=== PATIENT | female | born 2000 | race Caucasian/White ===

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

== ENCOUNTER 2019-03-24 20:36 | Emergency (ER) | payer OTHER ==
--- OUTSIDE RECORDS SUMMARY | 2019-03-24 20:45 | XMS REPORT | Continuity of Care Document ---
:2000 External Reference #:[id number] Author Name Rito Davis N.P. Address [address] [facility] [address] [place] [address] Care Team Providers Name Role Phone Ariadna Wiggins MD Care Team Information Log Processor Operator Unavailable Payers Date Identification Numbers Payment Provider Subscriber Policy Number: [id number] [facility] [place]: [id number] [address] [place] [address] Policy Number: [id number] Medicaid/[facility] [place] [facility] [id number] [address] [place] [address] Advance Directives Description No Information Available Problems Description No Active Problems Family History Date Family Member(s) Observation Comments Father Healthy Father 54 Children None Siblings 5 Social History Type Date Description Comments Sex Unknown Marital Status Legal Status: Never ETOH Use Denies alcohol use Tobacco Use Start: Unknown Patient has never smoked Allergies, Adverse Reactions, Alerts Description No Known Drug Allergies Medications Active Medications SIG Qnty Indications Ordering Date Provider Citalopram 1 by mouth every 30tabs F41.9 Ariadna Wiggins, 03/20/2019 Hydrobromide Night M.D. 10mg Tablets Lactaid One Tab By Mouth 30tabs E73.9 Ariadna Wiggins, 03/04/2019 3000Unit Per Dairy Meal. M.D. Tablets Elimite apply neck to 60gm B86 Ariadna Wiggins, 10/08/2018 5% Cream toe over M.D. entirety of skin prior to shower. Benadryl Itch Apply To Rash 28.300gm B86 Ariadna Wiggins, 10/08/2018 Stopping Once Daily prn M.D. 1-0.1% Cream Itch X 2 Weeks Mirena (52 MG) by fire engine operator Z30.49 Ariadna Wiggins, 03/23/2017 M.DSubhash 20mcg/24HR IUD History Medications No Active Medications Unknown 03/23/2017 - 03/23/2017 Wellbutrin XL 1 by mouth 30tabs F34.1 Ariadna Wiggins, 03/23/2017 - 150mg every day M.D. 02/18/2018 Tablets ER 24HR M54.5 Mobic 1 by mouth every 30tabs M41.34 Ariadna Wiggins, 05/14/2015 - 15mg morning M.D. 03/20/2017 Tablets M54.6 M54.5 Ibuprofen 1 by mouth three 90tabs 737.34 Ariadna Wiggins, 02/20/2015 - 800mg times a day as M.D. 05/14/2015 Tablets needed 724.1 724.2 No Active Medications Ariadna Wiggins, 04/01/2013 - M.D. 04/01/2013 Malathion Apply To Dry 59ml 132.0 Ariadna Wiggins, 04/01/2013 - 0.5% Lotion Hair 12H Then M.D. 04/02/2013 Rinse Medications Administered in Office Medication SIG Qnty Indications Ordering Provider Date Intradermal Mantoux Ariadna Wiggins M.D. 03/13/2018 Injection Immunizations CPT Code Status Date Vaccine Lot # [id number] Given 08/12/2011 Td 7 Years And Older 66061 Given 12/07/2001 Prevnar 45930 Given 12/12/2000 Hep B To Age 18 51246 Given 12/12/2000 Varicella Vaccine 77517 Given 12/12/2000 MMR 67543 Given 12/12/2000 DTaP ND [id number] ML 0.50 66894 Given 12/12/2000 Prevnar 35867 Given 09/12/2000 IPV 83500 Given 06/06/2000 Hemophilus Influenza B Vaccine 68580 Given 06/06/2000 DTaP ND [id number] ML 0.50 20385 Given 03/13/2000 Hep B To Age 18 99111 Given 03/13/2000 DTaP [facility] [id number] ML 0.50 77902 Given 03/13/2000 Hemophilus Influenza B Vaccine 44561 Given 01/13/2000 Hep B To Age 17 61307 Given 01/13/2000 IPV 92684 Given 01/13/2000 IPV 91498 Given 01/13/2000 DTaP [facility] [id number] ML 0.50 43608 Given 01/13/2000 Hemophilus Influenza B Vaccine Vital Signs Date Vital Result Comment 03/20/2019 10:25am BP Systolic 110 mmHg BP Diastolic 64 mmHg Height 68 inches 5'8" Weight 159.00 lb BMI (Body Mass Index) 24.2 kg/m2 Heart Rate 84 /min Respiratory Rate 16 /min 03/04/2019 11:33am BP Systolic 110 mmHg BP Diastolic 62 mmHg Height 68 inches 5'8" Weight 160.00 lb BMI (Body Mass Index) 24.3 kg/m2 Heart Rate 73 /min Respiratory Rate 16 /min 11/02/2018 2:01pm BP Systolic 130 mmHg BP Diastolic 78 mmHg Height 68 inches 5'8" Weight 174.00 lb BMI (Body Mass Index) 26.5 kg/m2 10/24/2018 4:02pm BP Systolic 110 mmHg BP Diastolic 62 mmHg Height 68 inches 5'8" Weight 177.00 lb BMI (Body Mass Index) 26.9 kg/m2 Heart Rate 80 /min Respiratory Rate 16 /min 10/08/2018 4:02pm BP Systolic 118 mmHg BP Diastolic 64 mmHg Height 68 inches 5'8" Weight 175.00 lb BMI (Body Mass Index) 26.6 kg/m2 Heart Rate 84 /min Respiratory Rate 16 /min 03/15/2018 1:03pm BP Systolic 120 mmHg BP Diastolic 80 mmHg Height 65.5 inches 5'5.50" Weight 192.00 lb BMI (Body Mass Index) 31.5 kg/m2 Heart Rate 122 /min Respiratory Rate 18 /min 03/13/2018 12:47pm BP Systolic 126 mmHg BP Diastolic 70 mmHg Height 65.5 inches 5'5.50" Weight 192.00 lb BMI (Body Mass Index) 31.5 kg/m2 Heart Rate 80 /min Respiratory Rate 18 /min 03/23/2017 4:04pm BP Systolic 124 mmHg BP Diastolic 78 mmHg Height 65.5 inches 5'5.50" Weight 179.00 lb BMI (Body Mass Index) 29.3 kg/m2 Heart Rate 104 /min Respiratory Rate 18 /min 05/14/2015 9:27am BP Systolic 132 mmHg BP Diastolic 80 mmHg Height 65.5 inches 5'5.50" Weight 147.00 lb BMI (Body Mass Index) 24.1 kg/m2 Heart Rate 84 /min Respiratory Rate 16 /min 02/20/2015 8:40am BP Systolic 131 mmHg BP Diastolic 69 mmHg Height 65.5 inches 5'5.50" Weight 144.00 lb BMI (Body Mass Index) 23.6 kg/m2 Heart Rate 73 /min Respiratory Rate 16 /min 01/26/2015 3:16pm BP Systolic 131 mmHg BP Diastolic 68 mmHg Height 65.5 inches 5'5.50" Weight 146.00 lb BMI (Body Mass Index) 23.9 kg/m2 Heart Rate 96 /min Respiratory Rate 16 /min 09/16/2013 3:40pm BP Systolic 113 mmHg BP Diastolic 69 mmHg Height 65.5 inches 5'5.50" Weight 136.00 lb BMI (Body Mass Index) 22.3 kg/m2 Heart Rate 79 /min Respiratory Rate 20 /min 08/19/2013 3:09pm BP Systolic 105 mmHg BP Diastolic 66 mmHg Height 65.5 inches 5'5.50" Weight 131.00 lb BMI (Body Mass Index) 21.5 kg/m2 Heart Rate 102 /min Respiratory Rate 16 /min 04/01/2013 11:48am BP Systolic 106 mmHg BP Diastolic 72 mmHg Height 64.25 inches 5'4.25" Weight 126.00 lb BMI (Body Mass Index) 21.5 kg/m2 Heart Rate 67 /min Respiratory Rate 20 /min 10/22/2012 3:05pm BP Systolic 108 mmHg BP Diastolic 58 mmHg Height 64.25 inches 5'4.25" Weight 119.00 lb BMI (Body Mass Index) 20.3 kg/m2 Heart Rate 79 /min Respiratory Rate 16 /min Results Test Date Facility Test Result H/L Range Note Allergy Interp 03/04/2019 [facility] Allergy See Note 1 [address] [facility] (457)- - CBC With Diff 03/04/2019 [facility] WBC 5.7 10*3/uL (4.1-11.0) [address] [facility] (607)- - RBC 4.50 10*6/uL (4.00-5.40) HGB 14.9 g/dL (12.0-16.0) HCT 42.6 % (36.0-47.0) MCV 94.6 fL (80.0-95.0) MCH 33.0 pg High (27.0-32.0) MCHC 34.9 g/dL (32.0-36.0) RDW 13.1 % (10.5-14.5) PLT 219 10*3/uL (150-450) MPV 9.2 fL (7.1-10.7) Neut % 40.9 % (35.0-75.0) Lymph % 50.6 % (16.0-52.0) Cecil % 6.9 % (0.0-8.0) Eos % 1.2 % (0.0-5.0) Baso % 0.4 % (0.0-4.0) Neut # 2.3 10*3/uL (1.8-7.7) Lymph # 2.9 10*3/uL (1.2-4.8) Cecil # 0.4 10*3/uL (0.0-0.8) Eos # 0.1 10*3/uL (0.0-0.5) Baso # 0.0 10*3/uL (0.0-0.2) CMP 03/04/2019 [facility] Sodium 141 mmol/L (136-145) [facility] (607)- - Potassium 3.9 mmol/L (3.6-5.2) Chloride 108 mmol/L (100-108) Co2 27 mmol/L (22-31) Anion Gap 6 mmol/L Low (7-16) Urea Nitrogen 11 mg/dL (7-24) Creatinine 0.68 mg/dL (0.60-1.00) BUN/Creat Ratio 16.2 RATIO (10.0-20.0) Glucose 91 mg/dL (70-99) Calcium 9.1 mg/dL (8.4-10.2) Total Protein 7.7 g/dL (6.4-8.2) Albumin 4.9 g/dL High (3.5-4.6) Globulin 2.8 g/dL (2.7-4.3) Alb/Glob Ratio 1.8 RATIO Alkaline Phosphatase 65 U/L (45-117) Bilirubin,Total 0.4 mg/dL (0.0-1.0) Ast (Sgot) 8 U/L Low (11-39) Alt (SGPT) 14 U/L (12-78) GFR >60 ml/min/1.73m2 (>59) GFR ( Amer) >60 ml/min/1.73m2 (>59) GFR Interpretation <SEE NOTE> 2 Laboratory test 03/04/2019 [facility] Gluten Food <0.10 kU/L 3 finding [facility]erg[facility] (607)- - Magnesium 2.1 mg/dL (1.7-2.4) TSH,Ultrasensitive @ 0.736 mIU/L (0.463-3.980) Laboratory test finding 03/04/2019 [facility] Amylase 43 U/L (25-115) [facility] (607)- - Lipase 87 U/L (65-230) Lipid 03/04/2019 [facility] Cholesterol @ 130 mg/dL (0-200) [facility] (607)- - Triglyceride @ 67 mg/dL (30-200) HDL Cholesterol @ 45 mg/dL (>40) 4 Chol/HDL Ratio 2.9 RATIO 5 LDL Chol (Calc) 72 mg/dL (<130) 6 Laboratory test 07/08/2018 [facility] Point of Care 92 mg/dL N 70- 100 7 finding Glucose Laboratory test 02/17/2018 [facility] Rapid Strep POSITIVE Abnormal Negative 8 finding Molecular Laboratory test 07/20/2017 [facility] Rapid Strep POSITIVE Abnormal Negative finding Molecular Laboratory test 03/23/2017 [facility] Erythrocyte Sed 12 mm/Hr N 0- 14 9 finding Rate Nohemi Magana 03/23/2017 [facility] Ebv Capsid Ag Positive N Negative Comprehensive IgG Ab Ebv Capsid Ag IgM Ab Negative N Negative Nohemi-Magana Nuclear Antigen Positive N Negative Nohemi-Magana Virus Interp See Comment N 10 Connective Tissue Panel 03/23/2017 [facility] Anti-Nuclear Antibody 0.3 U N 11 Cyclic Citrullinated Peptide <15.6 U N 12 Interpretation See Comment N 13 Laboratory test 03/23/2017 [facility] TSH (Thyroid 0.87 mcIU/mL N 0.34-5.60 14 finding Stim Horm) Rheumatoid Factor <15 IU/mL N <15 15 Comp Metabolic Panel 03/23/2017 [facility] Sodium 136 mmol/L N 133- 145 Potassium 4.1 mmol/L N 3.5-5.0 Chloride 103 mmol/L N 101-111 Co2 Carbon Dioxide 26 mmol/L N 22-32 Anion Gap 7 mmol/L N 2-11 Glucose 94 mg/dL N 70-100 Blood Urea Nitrogen 13 mg/dL N 6-24 Creatinine 0.82 mg/dL N 0.51-0.95 BUN/Creatinine Ratio 15.9 N 8-20 Calcium 9.9 mg/dL N 8.6-10.3 Total Protein 7.5 g/dL N 6.4-8.9 Albumin 4.9 g/dL N 3.2-5.2 Globulin 2.6 g/dL N 2-4 Albumin/Globulin Ratio 1.9 N 1-3 Total Bilirubin 0.40 mg/dL N 0.2-1.0 Alkaline Phosphatase 64 U/L N 34-104 Alt 7 U/L N 7-52 Ast 11 U/L Low 13-39 CBC Auto Diff 03/23/2017 [facility] White Blood Count 5.9 10^3/uL N 3.5-10.8 Red Blood Count 4.70 10^6/uL N 4.0-5.4 Hemoglobin 12.3 g/dL N 12.0-16.0 Hematocrit 39 % N 35-47 Mean Corpuscular Volume 82 fL N 80-97 Mean Corpuscular Hemoglobin 26 pg Low 27-31 Mean Corpuscular HGB Conc 32 g/dL N 31-36 Red Cell Distribution Width 16 % High 10.5-15 Platelet Count 274 10^3/uL N 150-450 Mean Platelet Volume 9 um3 N 7.4-10.4 Abs Neutrophils 3.2 10^3/uL N 1.5-7.7 Abs Lymphocytes 2.0 10^3/uL N 1.0-4.8 Abs Monocytes 0.5 10^3/uL N 0-0.8 Abs Eosinophils 0.1 10^3/uL N 0-0.6 Abs Basophils 0 10^3/uL N 0-0.2 Abs Nucleated RBC 0.01 10^3/uL N Granulocyte % 55.3 % N 38-83 Lymphocyte % 33.7 % N 25-47 Monocyte % 8.6 % N 1-9 Eosinophil % 2.0 % N 0-6 Basophil % 0.4 % N 0-2 Nucleated Red Blood Cells % 0.1 N CBC Auto Diff 09/08/2016 [facility] White Blood Count 7.6 10^3/uL N 3.5-10.8 Red Blood Count 4.06 10^6/uL N 4.0-5.4 Hemoglobin 10.5 g/dL Low 12.0-16.0 Hematocrit 33 % Low 35-47 Mean Corpuscular Volume 80 fL N 80-97 Mean Corpuscular Hemoglobin 26 pg Low 27-31 Mean Corpuscular HGB Conc 32 g/dL N 31-36 Red Cell Distribution Width 16 % High 10.5-15 Platelet Count 285 10^3/uL N 150-450 Mean Platelet Volume 9 um3 N 7.4-10.4 Abs Neutrophils 4.0 10^3/uL N 1.5-7.7 Abs Lymphocytes 2.6 10^3/uL N 1.0-4.8 Abs Monocytes 0.7 10^3/uL N 0-0.8 Abs Eosinophils 0.3 10^3/uL N 0-0.6 Abs Basophils 0 10^3/uL N 0-0.2 Abs Nucleated RBC 0 10^3/uL N Granulocyte % 52.8 % N 38-83 Lymphocyte % 33.9 % N 25-47 Monocyte % 8.6 % N 1-9 Eosinophil % 4.2 % N 0-6 Basophil % 0.5 % N 0-2 Nucleated Red Blood Cells % 0 N Laboratory test 09/16/2013 [facility] Thyroid Stim 1.35 uIU/mL 0.49-4.67 finding Hormone Liver Function Tests 09/16/2013 [facility] Total Protein 7.4 g/dL 6.3-8.0 Albumin 4.6 g/dL 3.5-5.0 Globulin 2.8 g/dL 1.9-4.3 Alb/Glob 1.6 ratio Bilirubin,Total 0.3 mg/dL 0.2-1.2 Bilirubin,Direct < 0.1 mg/dL Low 0.1-0.4 Bilirubin,Indirect 0.2 mg/dL 0.0-0.9 Sgot/Ast 11 U/L Low 16-40 SGPT/Alt 17 U/L Low 30-65 Alkaline Phosphatase 149 U/L 50-300 LDL Cholesterol Profile 09/16/2013 [facility] Cholesterol 130 mg/dL 120- 200 Triglycerides 73 mg/dL 16-231 HDL Cholesterol 49 mg/dL 29-83 LDL-Cholesterol 66 mg/dL 62-185 Laboratory test 09/16/2013 [facility] C-Reactive < 0.16 mg/L 0.00-3.00 16 finding Protein,Cardiac Sedimentation Rate 4 mm/hr 0-20 CBC W/Automated Diff 09/16/2013 [facility] White Blood Count 8.9 K/uL 4.5- 13.5 Red Blood Count 4.23 M/uL 4.10-5.10 Hemoglobin 12.9 gm/dL 12.0-16.0 Hematocrit 37.8 % 36.0-46.0 Mean Cell Volume 89.4 fl 77.0-95.0 Mean Corpuscular HGB 30.5 pg High 25.0-30.0 Mean Corpuscular HGB Conc 34.1 g/dL 30.8-34.3 Platelet Count 296 K/uL 155-360 Red Cell Distri Width SD 40.9 fl 3-47 Red Cell Distri Width %CV 12.7 % 11.7-14.4 Mean Platelet Volume 10.8 fL 8.9-12.4 Neut% 52.3 % 28.0-68.0 Lymph % 35.1 % 17.0-46.1 Cecil % 6.8 % 4.3-13.2 Eo% 5.5 % 0.0-6.6 Bas% 0.3 % 0.0-1.1 Neut# 4.64 K/uL 1.0-7.0 Lymph # 3.12 K/uL 0.8-3.4 Cecil # 0.60 K/uL 0.0-0.6 Eos # 0.49 K/uL 0.0-0.5 Baso # 0.03 K/uL 0.0-0.1 Basic Metabolic Panel 09/16/2013 [facility] Glucose 83 mg/dL 76-115 BUN 12 mg/dL 5-23 Creatinine 0.6 mg/dL 0.5-1.4 Glom Filtration Rate, Estimate >60 mL/min If >60 mL/min BUN/Creat 20.0 ratio Sodium 138 mmol/L 136-145 Potassium 4.0 mmol/L 3.5-5.1 Chloride 103 mmol/L 98-107 Carbon Dioxide 27 mEq/L 18-29 Anion Gap 12 mEq/L 8-16 Calcium 9.3 mg/dL 8.5-10.1 1 REFERENCE INTERVAL: Allergen, Interpretation Less than 0.10 kU/L......Class 0.....No significant level detected 0.10-0.34 kU/L...........Class 0/1...Clinical relevance undetermined 0.35-0.70 kU/L...........Class 1.....Low 0.71-3.50 kU/L...........Class 2.....Moderate 3.51-17.50 kU/L..........Class 3.....High 17.51-50.00 kU/L.........Class 4.....Very High 50.01-100.00 kU/L........Class 5.....Very High Greater than 100.00kU/L..Class 6.....Very High Allergen results of 0.10-0.34 kU/L are intended for specialist use as the clinical relevance is undetermined. Even though increasing ranges are reflective of increasing concentrations of allergen-specific IgE, these concentrations may not correlate with the degree of clinical response or skin testing results when challenged with a specific allergen. The correlation of allergy laboratory results with clinical history and in vivo reactivity to specific allergens is essential. A negative test may not rule out clinical allergy or even anaphylaxis. Performed by [facility], [address] [place] [id number] [email or web address], Fermin Mendes MD, Lab. Director 2 NORMAL KIDNEY FUNCTION OR MILD DISEASE - GFR >OR=60 CHRONIC KIDNEY DISEASE - GFR 15 - 59 RENAL FAILURE - GFR <15 Est. GFR calculation based on the MDRD study equation, which assumes a steady state for creatinine. Est. GFR should not be used for medication dosing. 3 Reference range: <=0.34 Performed by [facility], [address] [facility] [place] [id number] [email or web address], Fermin Mendes MD, Lab. Director 4 PER NCEP ATP III GUIDELINES: RESULTS LOWER THAN 40 MG/DL ARE SUGGESTIVE OF INCREASED RISK FOR CORONARY ARTERY DISEASE. RESULTS > OR=TO 60 MG/DL ARE CONSIDERED A NEGATIVE RISK FACTOR. 5 INTERPRETATION OF CHOL-HDL RATIO CHD RISK FEMALE MALE VERY HIGH >8.3 >14.3 HIGH 5.6- 8.3 6.7- 14.3 AVERAGE 3.7- 5.6 4.0- 6.7 BELOW AVERAGE 2.5- 3.7 2.7- 4.0 PROTECTED <2.5 <2.7 6 PER NCEP ATP III GUIDELINES: OPTIMAL < 100 NEAR OPTIMAL 100 - 129 BORDERLINE HIGH 130 - 159 HIGH 160 - 189 VERY HIGH > 189 7 Transfer Clerk: [id number] Transfer Clerk: [id number] RESULT: Results suggest past infection. ADDITIONAL INFORMATION In most populations, at least 90% of the adult population will have been infected with EBV sometime in the past and therefore, will be positive for anti-VCA/IgG and anti- EBNA. Antibodies to EBNA develop 6-8 weeks after primary infection and remain present for life. Presence of VCA/ IgM antibodies indicates recent primary infection with EBV. Test Performed by: [facility] [address] [place] [address] 11 REFERENCE VALUE <=1.0 (Negative) 12 REFERENCE VALUE <20.0 (Negative) 13 Tests for antibodies to dsDNA and ELVIRA antigens are not performed automatically unless the GORDY result is > or= 3.0 U. Studies performed at [facility] indicate that positive GORDY results <3.0 U are rarely accompanied by positive second order tests. Test Performed by: [address] [id number] 14 [id number] Test Performed by: [address] [id number] 16 Relative Risk for Future Cardiovascular Event Low <1.00 Average 1.00 - 3.00 High >3.00 Procedures Date Code Description Status 03/04/2019 10443 Visual Screening Test Completed 03/04/2019 77206 Audiometry, Bekesy, Screening Completed 03/23/2017 32959 Visual Screening Test Completed 03/23/2017 65819 Audiometry, Bekesy, Screening Completed Encounters Type Date Location Provider Dx Diagnosis Office Visit 03/20/2019 10:15a [facility] Rito Davis N.P. M54.5 Low back pain M79.606 Pain in leg, unspecified M62.831 Muscle spasm of calf F34.1 Dysthymic disorder R53.83 Other fatigue Z30.49 Encounter for surveillance of other contraceptives E66.01 Morbid (severe) obesity due to excess calories L20.9 Atopic dermatitis, unspecified J30.9 Allergic rhinitis, unspecified D48.5 Neoplasm of uncertain behavior of skin E55.9 Vitamin D deficiency, unspecified E66.3 Overweight E73.9 Lactose intolerance, unspecified R19.7 Diarrhea, unspecified R10.84 Generalized abdominal pain F41.9 Anxiety disorder, unspecified Z68.24 Body mass index (BMI) 24.0-24.9, adult Office Visit 03/04/2019 11:30a [facility] Rito Davis N.P. M54.5 Low back pain M79.606 Pain in leg, unspecified M62.831 Muscle spasm of calf F41.9 Anxiety disorder, unspecified F34.1 Dysthymic disorder R53.83 Other fatigue Z30.49 Encounter for surveillance of other contraceptives Z68.24 Body mass index (BMI) 24.0-24.9, adult E66.01 Morbid (severe) obesity due to excess calories L20.9 Atopic dermatitis, unspecified J30.9 Allergic rhinitis, unspecified D48.5 Neoplasm of uncertain behavior of skin E55.9 Vitamin D deficiency, unspecified E66.3 Overweight E73.9 Lactose intolerance, unspecified R19.7 Diarrhea, unspecified R10.84 Generalized abdominal pain Z00.01 Encounter for general adult medical exam w abnormal findings Office Visit 11/02/2018 2:00p [facility] Rito Davis N.P. M54.5 Low back pain M79.606 Pain in leg, unspecified M62.831 Muscle spasm of calf F41.9 Anxiety disorder, unspecified F34.1 Dysthymic disorder R53.83 Other fatigue Z30.49 Encounter for surveillance of other contraceptives E66.01 Morbid (severe) obesity due to excess calories L20.9 Atopic dermatitis, unspecified J30.9 Allergic rhinitis, unspecified B86 Scabies D48.5 Neoplasm of uncertain behavior of skin Office Visit 10/24/2018 4:30p [facility] Rito Davis N.P. M54.5 Low back pain M79.606 Pain in leg, unspecified M62.831 Muscle spasm of calf F41.9 Anxiety disorder, unspecified F34.1 Dysthymic disorder R53.83 Other fatigue Z30.49 Encounter for surveillance of other contraceptives E66.01 Morbid (severe) obesity due to excess calories L20.9 Atopic dermatitis, unspecified J30.9 Allergic rhinitis, unspecified B86 Scabies D48.5 Neoplasm of uncertain behavior of skin Office Visit 10/08/2018 4:00p [facility] Rito Davis N.Luis. M54.5 Low back pain M79.606 Pain in leg, unspecified M62.831 Muscle spasm of calf F41.9 Anxiety disorder, unspecified F34.1 Dysthymic disorder R53.83 Other fatigue Z30.49 Encounter for surveillance of other contraceptives E66.01 Morbid (severe) obesity due to excess calories L20.9 Atopic dermatitis, unspecified J30.9 Allergic rhinitis, unspecified B86 Scabies Office Visit 03/15/2018 1:15p [facility] Ariadna Wiggins L20.9 Atopic Stacey ewing M.D. 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 unspecified J30.9 Allergic rhinitis, unspecified M41.34 Thoracogenic scoliosis, thoracic region M54.5 Low back pain M79.606 Pain in leg, unspecified M62.831 Muscle spasm of calf F41.9 Anxiety disorder, unspecified F34.1 Dysthymic disorder R53.83 Other fatigue Z30.49 Encounter for surveillance of other contraceptives E66.01 Morbid (severe) obesity due to excess calories Z00.121 Encounter for routine child health exam w abnormal findings Office Visit 05/14/2015 9:30a [facility] Ariadna Wiggins 737.34 Scoliosis Myles Ibarra Thoracogenic 724.1 Pain Thoracic Spine 724.2 Lumbago 729.5 Pain In Limb 780.79 Malaise And Fatigue Other Office Visit 02/20/2015 8:45a [facility] Ariadna Wiggins 737.34 Scoliosis Myles Ibarra Thoracogenic 724.1 Pain Thoracic Spine 724.2 Lumbago 729.5 Pain In Limb 780.79 Malaise And Fatigue Other Office Visit 01/26/2015 3:30p [facility] Ariadna Wiggins M.D. 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 Other Office Visit 04/01/2013 12:00p [facility] Ariadna Wiggins, 132.0 Pediculus Capitis Myles (Head Louse) 708.9 Urticaria Unspec Plan of Treatment Future Appointment(s):04/05/2019 10:30 am - Rito Davis, N.[facility]ub[facility] at [facility] [id number]/20/2019 - Rito Davis N.P.M54.5 Low back painComments:EXERCISE/HEAT /MESSAGEAVOID HEAVY LIFTING WT LOSSTYLENOL OR MOTRIN PRNM79.606 Pain in leg, unspecifiedComments:TYLENOL OR MOTRIN PRN EXERCISE/HEAT/PMWHWUBJ53.831 Muscle spasm of calfComments:EXERCISE/HEAT/MESSAGETYLENOL OR MOTRIN PRNF34.1 Dysthymic disorderComments:COUNCELLING AND REASSURANCE RELAXATION TECHNIQUES DISCUSSEDCOUNSELED RE: STRESSORS IN LIFER53.83 Other fatigueComments:INCRFEASE PO FLUIDCOUNCELLING AND REASSURANCE RESTZ30.49 Encounter for surveillance of other contraceptivesComments:F/U WITH OB/GYNE66.01 Morbid (severe) obesity due to excess caloriesComments:WT LOSS COUNCELLINGEXERCISEDIET [id number] Atopic dermatitis, unspecifiedComments:SKIN CARE INSTRUCTIONS LOTION OR BABY OIL 2-3 APPLICATION PER DAYUSE MOISTURIZING SOAPAVOID PROLONGED WATER EXPOSUREAVOID USING HOT WATER IN GMSMAST78.9 Allergic rhinitis, unspecifiedComments:INCREASE PO FLUID USE ANTIHISTAMINE PRN SECOND HAND SMOKING [id number] Neoplasm of uncertain behavior of skinE55.9 Vitamin D deficiency , unspecifiedComments:INCREASE EXPOSURE TO SUNREVIEW OF DIETE66.3 OverweightComments:EXERCISE REGURALYDIET [id number] Lactose intolerance, unspecifiedComments:LCTOSE FREE DIETF/U WITH GI PRNR19.7 Diarrhea, unspecifiedComments:INCREASE PO FLUID DIET REVIEW JEANETTE DIET PRNIMMODIUM PRNR10.84 Generalized abdominal painComments:TYLENOL OR MOTRIN PRNINCREASE PO FLUIDLAXATIVE PRN F/U DIRECTEDF/U [id number] Anxiety disorder, unspecifiedNew Medication:Citalopram Hydrobromide 10 mg - 1 by mouth every NightComments:COUNCELLING AND REASSURANCE RELAXATION TECHNIQUES DISCUSSEDCOUNSELED RE: STRESSORS IN LIFE AVOID ALLENERGY/HIGH CAFFEINE EHNWILJ99.24 Body mass index (BMI) 24.0-24.9, adult
--- OUTSIDE RECORDS SUMMARY | 2019-03-24 20:45 | XMS REPORT | Continuity of Care Document ---
:2000 External Reference #:[id number] Author Name Rito Davis N.P. Address [address] [facility] [address] [place] [address] Care Team Providers Name Role Phone Ariadna Wgigins MD Care Team Information Proof Clerk Unavailable Payers Date Identification Numbers Payment Provider Subscriber Policy Number: [id number] [facility] [id number] [address] [place] [address] Policy Number: [id number] [facility] PayID: [id number] [address] [place] [address] Advance Directives Description No Information Available Problems [...] Medications SIG Qnty Indications Ordering Date Provider Lactaid One Tab By Mouth 30tabs E73.9 Ariadna Wiggins, 03/04/2019 3000Unit Per Dairy Meal. M.D. Tablets Elimite apply neck to toe 60gm B86 Ariadna Wiggins, 10/08/2018 5% Cream over entirety of M.D. skin prior to shower. Benadryl Itch Apply To Rash 28.300gm B86 Ariadna Wiggins, 10/08/2018 Stopping Once Daily prn M.D. 1-0.1% Cream Itch X 2 Weeks Mirena (52 MG) by midwife Z30.49 Ariadna WigginsSubhash, 03/23/2017 M.D. 20mcg/24HR IUD History Medications No Active Medications Unknown 03/23/2017 - 03/23/2017 Wellbutrin XL 1 by mouth 30tabs F41.9 Ariadna WigginsSubhash, 03/23/2017 - 150mg every day M.D. 02/18/2018 Tablets ER 24HR F34.1 Mobic 1 by mouth every 30tabs M41.34 Ariadna Wiggins Stacey, 05/14/2015 - 15mg morning M.D. 03/20/2017 Tablets M54.6 M54.5 Ibuprofen 1 by mouth three 90tabs 737.34 Ariadna Wiggins Stacey, 02/20/2015 - 800mg times a day as M.D. 05/14/2015 Tablets needed 724.1 724.2 No Active Medications Chava Wigginslion Ibarra, 04/01/2013 - M.D. 04/01/2013 Malathion Apply To Dry 59ml 132.0 Feliciano Chavalion Ibarra, 04/01/2013 - 0.5% Lotion Hair 12H Then M.D. 04/02/2013 Rinse Medications Administered in Office Medication SIG Qnty Indications Ordering Provider Date Intradermal Mantoux Ariadna Wiggins M.D. 03/13/2018 Injection Immunizations CPT Code Status Date Vaccine Lot # [id number] Given 08/12/2011 Td 7 Years And Older 48219 Given 12/07/2001 Prevnar 60355 Given 12/12/2000 Hep B To Age 18 20894 Given 12/12/2000 Varicella Vaccine 11705 Given 12/12/2000 MMR 00068 Given 12/12/2000 DTaP NDC [id number] ML 0.50 12576 Given 12/12/2000 Prevnar 90097 Given 09/12/2000 IPV 63739 Given 06/06/2000 Hemophilus Influenza B Vaccine 77687 Given 06/06/2000 DTaP NDC [id number] ML 0.50 25660 Given 03/13/2000 Hep B To Age 18 38834 Given 03/13/2000 DTaP NDC [id number] ML 0.50 71607 Given 03/13/2000 Hemophilus Influenza B Vaccine 66237 Given 01/13/2000 Hep B To Age 17 09163 Given 01/13/2000 IPV 58049 Given 01/13/2000 IPV 30930 Given 01/13/2000 DTaP [facility] [id number] ML 0.50 53139 Given 01/13/2000 Hemophilus Influenza B Vaccine Vital Signs Date Vital Result Comment 03/04/2019 11:33am BP Systolic 110 mmHg BP [...] Date Facility Test Result H/L Range Note Laboratory test 03/04/2019 [facility] Amylase <pending> finding [facility] (607)- - Lipase <pending> Laboratory test 03/04/2019 [facility] Allergy Gluten <pending> finding [address] [facility] Food (607)- - Magnesium <pending> TSH, Ultrasenstive <pending> Laboratory test 07/08/2018 [facility] Point of Care 92 mg/dL N 70- 100 1 finding Glucose Laboratory test 02/17/2018 [facility] Rapid Strep POSITIVE Abnormal Negative 2 finding Molecular Laboratory test 07/20/2017 [facility] Rapid Strep POSITIVE Abnormal Negative finding Molecular Nohemi Magana 03/23/2017 [facility] Ebv Capsid Ag Positive N Negative Comprehensive IgG Ab Ebv Capsid Ag IgM Ab Negative N Negative Nohemi-Magana Nuclear Antigen Positive N Negative Nohemi-Magana Virus Interp See Comment N 3 Connective Tissue Panel 03/23/2017 [facility] Anti-Nuclear Antibody 0.3 U N 4 Cyclic Citrullinated Peptide <15.6 U N 5 Interpretation See Comment N 6 Laboratory test 03/23/2017 [facility] TSH (Thyroid 0.87 mcIU/mL N 0.34-5.60 7 finding Stim Horm) Rheumatoid Factor <15 IU/mL N <15 8 Laboratory test 03/23/2017 [facility] Erythrocyte Sed 12 mm/Hr N 0- 14 9 finding Rate Comp Metabolic 03/23/2017 [facility] Sodium 136 mmol/L N 133-145 Panel Potassium 4.1 mmol/L N 3.5-5.0 Chloride 103 [...] U/L Low 13-39 CBC Auto Diff 03/23/2017 [facility] White Blood Count 5.9 10^3/uL N 3.5-10.8 [...] % 0.1 N CBC Auto Diff 09/08/2016 [facility] White Blood Count 7.6 10^3/uL N 3.5-10.8 [...] Cells % 0 N Laboratory test 09/16/2013 [facility] Thyroid Stim 1.35 uIU/mL 0.49-4.67 finding Hormone Liver Function Tests 09/16/2013 [facility] Total Protein 7.4 g/dL 6.3-8.0 Albumin 4.6 g/dL 3.5-5.0 Globulin 2.8 g/dL 1.9-4.3 Alb/Glob 1.6 ratio Bilirubin,Total 0.3 mg/dL 0.2-1.2 Bilirubin,Direct < 0.1 mg/dL Low 0.1-0.4 Bilirubin,Indirect 0.2 mg/dL 0.0-0.9 Sgot/Ast 11 U/L Low 16-40 SGPT/Alt 17 U/L Low 30-65 Alkaline Phosphatase 149 U/L 50-300 LDL Cholesterol Profile 09/16/2013 [facility] Cholesterol 130 mg/dL 120- 200 Triglycerides 73 mg/dL 16-231 HDL Cholesterol 49 mg/dL 29-83 LDL-Cholesterol 66 mg/dL 62-185 Laboratory test 09/16/2013 [facility] C-Reactive < 0.16 mg/L 0.00-3.00 10 finding Protein,Cardiac Sedimentation Rate 4 mm/hr 0-20 CBC W/Automated Diff 09/16/2013 [facility] White Blood Count 8.9 K/uL 4.5- 13.5 [...] % 28.0-68.0 Lymph % 35.1 % 17.0-46.1 Berg[place] % 6.8 % 4.3-13.2 Eo% 5.5 % 0.0-6.6 Bas% 0.3 % 0.0-1.1 Neut# 4.64 K/uL 1.0-7.0 Lymph # 3.12 K/uL 0.8-3.4 Berg[place] # 0.60 K/uL 0.0-0.6 Eos # 0.49 K/uL 0.0-0.5 Baso # 0.03 K/uL 0.0-0.1 Basic Metabolic Panel 09/16/2013 [facility] Glucose 83 mg/dL 76-115 BUN 12 mg/dL 5-23 Creatinine 0.6 mg/dL 0.5-1.4 Glom Filtration Rate, Estimate >60 mL/min If >60 mL/min BUN/Creat 20.0 ratio Sodium 138 mmol/L 136-145 Potassium 4.0 mmol/L 3.5-5.1 Chloride 103 mmol/L 98-107 Carbon Dioxide 27 mEq/L 18-29 Anion Gap 12 mEq/L 8-16 Calcium 9.3 mg/dL 8.5-10.1 1 Technical Cable Jointer: [id number] 2 Technical Cable Jointer: [id number] RESULT: Results suggest past infection. ADDITIONAL INFORMATION [...] with EBV. Test Performed by: [facility] - [address] [address] 4 REFERENCE VALUE <=1.0 (Negative) 5 REFERENCE VALUE <20.0 (Negative) 6 Tests for antibodies to dsDNA and ELVIRA antigens are not performed automatically unless the GORDY result is > or= 3.0 U. Studies performed at [facility] indicate that positive GORDY results <3.0 U are rarely accompanied by positive second order tests. Test Performed by: [address] [id number] 7 [id number] Test Performed by: [address] [address] 9 [id number] 10 Relative Risk for Future Cardiovascular Event Low <1.00 Average 1.00 - 3.00 High >3.00 Procedures Date Code Description Status 03/04/2019 62739 Visual Screening Test Completed 03/04/2019 61378 Audiometry, Bekesy, Screening Completed 03/23/2017 93446 Visual Screening Test Completed 03/23/2017 25939 Audiometry, Bekesy, Screening Completed Encounters Type Date Location Provider Dx Diagnosis Office Visit 03/04/2019 11:30a [facility] Rito Davis N.P. M54.5 Low back [...] w abnormal findings Office Visit 11/02/2018 2:00p [facility] Riot Davis N.P. M54.5 Low back pain M79.606 Pain in leg, unspecified M62.831 Muscle spasm of calf F41.9 Anxiety disorder, unspecified F34.1 Dysthymic disorder R53.83 Other fatigue Z30.49 Encounter for surveillance of other contraceptives E66.01 Morbid (severe) obesity due to excess calories L20.9 Atopic dermatitis, unspecified J30.9 Allergic rhinitis, unspecified B86 Scabies D48.5 Neoplasm of uncertain behavior of skin Office Visit 10/24/2018 4:30p [facility] Rito Davis N.P. M54.5 Low back [...] behavior of skin Office Visit 10/08/2018 4:00p [facility] Rito Davis N.P. M54.5 Low back pain M79.606 Pain in leg, unspecified M62.831 Muscle spasm of calf F41.9 Anxiety disorder, unspecified F34.1 Dysthymic disorder R53.83 Other fatigue Z30.49 Encounter for surveillance of other contraceptives E66.01 Morbid (severe) obesity due to excess calories L20.9 Atopic dermatitis, unspecified J30.9 Allergic rhinitis, unspecified B86 Scabies Office Visit 03/15/2018 1:15p [facility] Ariadna Wiggins L20.Stacey Lao M.D. unspecified J30.9 Allergic rhinitis, unspecified M41.34 [...] for respiratory tuberculosis Office Visit 03/13/2018 1:00p [facility] Ariadna Wiggins L20.Stacey Lao M.D. unspecified J30.9 Allergic rhinitis, unspecified M41.34 [...] for respiratory tuberculosis Office Visit 03/23/2017 4:30p [facility] Ariadna Wiggins L20.Stacey Lao M.D. unspecified J30.9 Allergic rhinitis, unspecified M41.34 [...] w abnormal findings Office Visit 05/14/2015 9:30a [facility] Ariadna Wiggins 737.34 Katheryn Ibarra M.D. Thoracogenic 724.1 Pain Thoracic Spine 724.2 Lumbago 729.5 Pain In Limb 780.79 Malaise And Fatigue Other Office Visit 02/20/2015 8:45a [facility] Ariadna Wiggins 737.34 Scoliosis Myles Ibarra Thoracogenic 724.1 Pain Thoracic Spine 724.2 Lumbago 729.5 Pain In Limb 780.79 Malaise And Fatigue Other Office Visit 01/26/2015 3:30p [facility] Ariadna Wiggins M.D. 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 at [facility]
[2019-03-24 20:55] VITALS: BP 134/68
[2019-03-24] MEDS ORDERED: Lidocaine 2% VISCOUS* 15 ML UDC PO ONE (21:03)
--- NOTE | 2019-04-26 09:13 | UC ---
Dental HPI - HPI Summary HPI Summary: DENTAL PAIN . PT STATES HER WISDOM TOOTH , LEFT LOWER RECENTLY CAME IN AND IS PAINFUL . DIFFICULTY CHEWING AND OPENING HER MOUTH. TAKING IBUPROFEN AND TYLENOL WITH SOME RELIEF. HAS BEEN USING CLOVE OIL WELL. STATES SHE HAD SOME BLEEDING FROM THE AREA ALSO [ End ] - History of Current Complaint Chief Complaint: UCDentalProblem Stated Complaint: DENTAL PAIN Time Seen by Provider: 03/24/19 20:45 Hx Obtained From: Patient Hx Last Menstrual Period: HAS AND IUD, DOES NOT HAVE REG PERIODS ?: No Onset/Duration: Gradual Onset, Lasting Weeks Severity: Severe Pain Intensity: 7 Pain Scale Used: 0-10 Numeric Related History: Previous Dental Care on Same Tooth - Allergies/Home Medications Allergies/Adverse Reactions: Allergies Allergy/AdvReac Type Severity Reaction Status Date / Time No Known Allergies Allergy Verified 03/24/19 20:45 Home Medications: Home Medications Acetaminophen [Extra Strength Non-Aspirin] 1,000 mg PO PRN 03/24/19 [History] Citalopram TAB* [CeleXA TAB*] 10 mg PO DAILY 03/24/19 [History Confirmed ] Ibuprofen TAB* [Advil TAB*] 400 mg PO Q6H PRN 03/24/19 [History Confirmed ] Levonorgestrel (Iud) [Mirena IUD] 20 mcg IU 03/24/19 [History] PMH/Surg Hx/FS Hx/Imm Hx Previously Healthy: Yes - Surgical History Surgical History: None - Family History Known Family History: Positive: None, Cardiac Disease, Hypertension, Diabetes - Social History Alcohol Use: None Substance Use Type: Marijuana Substance Use Comment - Amount & Last Used: DAILY Smoking Status (MU): Never Smoked Tobacco Have You Smoked in the Last Year: No - Immunization History Vaccination Up to Date: Yes Review of Systems All Other Systems Reviewed And Are Negative: Yes ENT: Positive: Dental Pain, Ear Ache Neurological: Positive: Headache Is Patient Immunocompromised?: No Physical Exam Triage Information Reviewed: Yes Completion Of Physical Exam Limited Due To: Other Appearance: Well-Appearing, Well-Nourished Vital Signs: Initial Vital Signs Temp 98 F 03/24/19 20:48 Pulse 92 03/24/19 20:48 Resp 18 03/24/19 20:48 BP 134/68 03/24/19 20:48 Pulse Ox 98 03/24/19 20:48 Eye Exam: Normal ENT Exam: Normal Dental: Positive: Gross Decay/Caries @, Dental Fracture @, Cervical Lymphadenopathy Neck exam: Normal Respiratory Exam: Normal Respiratory: Positive: Chest non-tender, Lungs clear, Normal breath sounds Cardiovascular Exam: Normal Cardiovascular: Positive: RRR, No Murmur, Pulses Normal Abdominal Exam: Normal Bowel Sounds: Positive: Present Musculoskeletal Exam: Normal Neurological Exam: Normal Psychological Exam: Normal Skin Exam: Normal Dental Complaint Course/Dx - Course Course Of Treatment: hx obtained, exam performed ,meds reviewed, treated for dental pain - Differential Dx/Diagnosis Provider Diagnosis: Pain due to dental caries Discharge - Sign-Out/Discharge Documenting (check all that apply): Patient Departure All imaging exams completed and their final reports reviewed: No Studies - Discharge Plan Condition: Stable Disposition: HOME Patient Education Materials: Toothache (ED) Referrals: Ariadna Wiggins MD [Primary Care Provider] - Additional Instructions: 1. take 500 mg of ibuprofen and 1000 mg of tylenol together every 8 hours 2. use the lidocaine as needed for numbing of the area 3. follow up with the dentist in the morning. - Billing Disposition and Condition Condition: STABLE Disposition: Home
== END 2019-03-24 21:18 | disposition home or self-care (01) ==
LOC: UCCORT 20:36
DX: K08.89 Other specified disorders of teeth and supporting structures (principal); K02.9 Dental caries, unspecified
CPT/HCPCS: 99212; G0463

== ENCOUNTER 2019-05-24 09:37 | Emergency (ER) | payer OTHER ==
[2019-05-24 09:55] VITALS: BP 125/90
--- NOTE | 2019-05-24 10:51 | UC ---
Throat Pain/Nasal Ramon HPI - HPI Summary HPI Summary: 18-year-old female comes in with a chief complaint of sore throats upper chest congestion and difficulty breathing. About 3 days ago started with a sore throat and then swerved into her chest. She has had some wheezing she has had some green sputum production. She does feel short of breath. Laying down and it makes it worse. Sore throats improved. At this time she feels mildly short of breath but improved since last night. - History of Current Complaint Chief Complaint: UCGeneralIllness Stated Complaint: COUGH,SORE THROAT Time Seen by Provider: 05/24/19 10:42 Hx Last Menstrual Period: mirena Pain Intensity: 0 - Allergies/Home Medications Allergies/Adverse Reactions: Allergies Allergy/AdvReac Type Severity Reaction Status Date / Time No Known Allergies Allergy Verified 05/24/19 09:50 PMH/Surg Hx/FS Hx/Imm Hx Previously Healthy: Yes - Surgical History Surgical History: None - Family History Known Family History: Positive: None, Cardiac Disease, Hypertension, Diabetes - Social History Alcohol Use: None Substance Use Type: Marijuana Substance Use Comment - Amount & Last Used: DAILY Smoking Status (MU): Never Smoked Tobacco Have You Smoked in the Last Year: No - Immunization History Vaccination Up to Date: Yes Review of Systems All Other Systems Reviewed And Are Negative: Yes Constitutional: Positive: Negative Skin: Positive: Negative Eyes: Positive: Negative ENT: Positive: Sore Throat Respiratory: Positive: Other - SEE HPI Cardiovascular: Positive: Other - SEE HPI Gastrointestinal: Positive: Negative Motor: Positive: Negative Neurovascular: Positive: Negative Musculoskeletal: Positive: Negative Neurological: Positive: Negative Psychological: Positive: Negative Is Patient Immunocompromised?: No Physical Exam Triage Information Reviewed: Yes Appearance: Well-Appearing, No Pain Distress, Well-Nourished Vital Signs: Initial Vital Signs Temp 97.5 F 05/24/19 09:50 Pulse 105 05/24/19 09:50 Resp 17 05/24/19 09:50 BP 125/90 05/24/19 09:50 Pulse Ox 96 05/24/19 09:50 Vital Signs Reviewed: Yes Eye Exam: Normal Eyes: Positive: Conjunctiva Clear ENT: Positive: Pharyngeal erythema, TMs normal, Uvula midline. Negative: Tonsillar swelling, Muffled voice, Hoarse voice Neck: Positive: Supple Respiratory: Positive: Lungs clear, Normal breath sounds, No respiratory distress Cardiovascular: Positive: RRR Musculoskeletal Exam: Normal Musculoskeletal: Positive: Strength Intact, ROM Intact Neurological Exam: Normal Neurological: Positive: Alert, Muscle Tone Normal Psychological Exam: Normal Psychological: Positive: Age Appropriate Behavior Skin Exam: Normal Throat Pain/Nasal Course/Dx - Course Course Of Treatment: We discussed viral verses bacterial infection. At this time with the patient having green sputum and her chest feeling tight and having wheezing and to treat with steroids and albuterol. Were covering with an antibiotic if there is a bacterial cause as the patient did have difficulty swallowing and breathing during her illness. I let the patient know that if she got more short of breath or had any other problems she needed to go the emergency department for further evaluation and care. - Differential Dx/Diagnosis Provider Diagnosis: Bronchitis with bronchospasm Discharge - Sign-Out/Discharge Documenting (check all that apply): Patient Departure All imaging exams completed and their final reports reviewed: No Studies - Discharge Plan Condition: Stable Disposition: HOME Prescriptions: Albuterol HFA INHALER* [Ventolin HFA Inhaler*] 2 puff INH Q4H PRN #1 mdi PRN Reason: Wheezing Amoxicillin/Clavulanate TAB* [Augmentin TAB 875*] 875 mg PO BID #20 tab predniSONE TAB* [Deltasone 20 MG TAB*] 40 mg PO DAILY #10 tab Patient Education Materials: Acute Bronchitis (ED), Bronchospasm (ED) Referrals: Ariadna Wiggins MD [Primary Care Provider] - Additional Instructions: FOLLOW UP WITH YOUR DOCTOR IF NOT COMPLETELY IMPROVED. GO TO THE EMERGENCY DEPARTMENT IF WORSE; SHORTNESS OF BREATH, DIFFICULTY BREATHING OR ANY QUESTIONS OR CONCERNS. - Billing Disposition and Condition Condition: STABLE Disposition: Home
== END 2019-05-24 11:09 | disposition home or self-care (01) ==
LOC: UCCORT 09:37
DX: J40 Bronchitis, not specified as acute or chronic (principal)
CPT/HCPCS: 87651; 99212; G0463

== ENCOUNTER 2019-06-14 12:07 | Emergency (ER) | payer OTHER ==
[2019-06-14 13:32] VITALS: BP 105/70
--- NOTE | 2019-06-14 13:40 | UC ---
UC General HPI - HPI Summary HPI Summary: sutures placed L brow 7 days ago. here for removal. no headaches, rash or complaints. - History of Current Complaint Chief Complaint: Neil Stated Complaint: SUTURE REMOVAL-DONE AT [facility] Time Seen by Provider: 06/14/19 13:33 Hx Obtained From: Patient, Family/Fur Tanner Hx Last Menstrual Period: september 2016--has mirena IUD Pain Intensity: 0 Associated Signs & Symptoms: Negative: Fever - Allergy/Home Medications Allergies/Adverse Reactions: Allergies Allergy/AdvReac Type Severity Reaction Status Date / Time No Known Allergies Allergy Verified 06/14/19 13:32 PMH/Surg Hx/FS Hx/Imm Hx Psychological History: Depression - Surgical History Surgical History: None - Family History Known Family History: Positive: None, Cardiac Disease, Hypertension, Diabetes - Social History Lives: With Family Alcohol Use: None Substance Use Type: Marijuana Substance Use Comment - Amount & Last Used: DAILY Smoking Status (MU): Never Smoked Tobacco Have You Smoked in the Last Year: No - Immunization History Vaccination Up to Date: Yes Review of Systems All Other Systems Reviewed And Are Negative: No Constitutional: Negative: Fever Skin: Negative: Rash Musculoskeletal: Negative: Edema Neurological: Negative: Headache Physical Exam Triage Information Reviewed: Yes Appearance: Well-Appearing Vital Signs: Initial Vital Signs Temp 98.5 F 06/14/19 13:26 Pulse 76 06/14/19 13:26 Resp 16 06/14/19 13:26 BP 105/70 06/14/19 13:26 Pulse Ox 99 06/14/19 13:26 Vital Signs Reviewed: Yes Eyes: Positive: Conjunctiva Clear Neurological: Positive: Alert Psychological: Positive: Age Appropriate Behavior Skin Exam: Normal, Other - 3 sutures in L brow. site healed with no red or swelling. Course/Dx - Course Course Of Treatment: sutures removed by this PA. tolerated well. - Diagnoses Provider Diagnosis: Visit for suture removal Discharge - Sign-Out/Discharge Documenting (check all that apply): Patient Departure All imaging exams completed and their final reports reviewed: No Studies - Discharge Plan Condition: Stable Disposition: HOME Patient Education Materials: Stitches Removal (ED) Referrals: Ariadna Wiggins MD [Primary Care Provider] - If Needed - Billing Disposition and Condition Condition: STABLE Disposition: Home
== END 2019-06-14 13:48 | disposition home or self-care (01) ==
LOC: UCCORT 12:07
DX: Z48.02 Encounter for removal of sutures (principal)
CPT/HCPCS: 99211; G0463

== ENCOUNTER 2019-12-14 20:27 | Emergency (ER) | payer OTHER ==
[2019-12-14 20:39] VITALS: BP 118/79
--- NOTE | 2019-12-14 20:54 | UC ---
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 " -here w/ BF Guillermo. + fatigue, body aches. decr appetite -no rash -no n/v/d/dysuria - History of Current Complaint Chief Complaint: UCGeneralIllness Stated Complaint: COUGH, SORE THROAT Time Seen by Provider: 12/14/19 20:40 Hx Last Menstrual Period: september 2016--has mirena IUD Pain Intensity: 3 - Allergies/Home Medications Allergies/Adverse Reactions: Allergies Allergy/AdvReac Type Severity Reaction Status Date / Time No Known Allergies Allergy Verified 12/14/19 20:40 PMH/Surg Hx/FS Hx/Imm Hx Previously Healthy: Yes - Surgical History Surgical History: None - Family History Known Family History: Positive: Cardiac Disease, Hypertension, Diabetes - Social History Alcohol Use: None Substance Use Type: Marijuana Substance Use Comment - Amount & Last Used: DAILY Smoking Status (MU): Never Smoked Tobacco Have You Smoked in the Last Year: No - Immunization History Vaccination Up to Date: Yes Review of Systems All Other Systems Reviewed And Are Negative: Yes Constitutional: Positive: Fever, Fatigue Skin: Negative: Rash Eyes: Positive: Negative ENT: Positive: Sore Throat Respiratory: Positive: Negative. Negative: Shortness Of Breath, Cough Cardiovascular: Positive: Negative. Negative: Palpitations, Chest Pain Gastrointestinal: Positive: Negative. Negative: Abdominal Pain, Vomiting, Diarrhea, Nausea Genitourinary: Positive: Negative Motor: Positive: Weakness Neurovascular: Positive: Negative Musculoskeletal: Positive: Myalgia Neurological: Positive: Negative. Negative: Weakness, Paresthesia, Numbness Psychological: Positive: Negative Is Patient Immunocompromised?: No Physical Exam Triage Information Reviewed: Yes Appearance: Well-Appearing - very pleasant. smiling. sitting up one xam table. Vital Signs: Initial Vital Signs Temp 97.9 F 12/14/19 20:35 Pulse 103 12/14/19 20:35 Resp 16 12/14/19 20:35 BP 118/79 12/14/19 20:35 Pulse Ox 98 12/14/19 20:35 Vital Signs Reviewed: Yes Eye Exam: Normal ENT: Positive: Pharyngeal erythema, TMs normal, Uvula midline. Negative: Sinus tenderness Neck exam: Normal Neck: Positive: Supple, Nontender, No Lymphadenopathy Respiratory Exam: Normal Respiratory: Positive: Lungs clear, Normal breath sounds, No respiratory distress, No accessory muscle use. Negative: Crackles, Rhonchi, Stridor, Wheezing Cardiovascular Exam: Normal - HR 90 on exam radial and apical. Cardiovascular: Positive: RRR Abdominal Exam: Normal Abdomen Description: Positive: Nontender, Soft Musculoskeletal Exam: Normal Neurological Exam: Normal Psychological Exam: Normal Skin Exam: Normal Respiratory Course/Dx - Course Course Of Treatment: flu neg. likely viral syndrome. looks well. no e/o bactreial infection. reassured. she is relieved thatshe doesnt ahve the flu/ - Differential Dx/Diagnosis Differential Diagnosis/HQI/PQRI: Bronchitis, Influenza, Laryngitis Provider Diagnosis: Upper respiratory infection Discharge ED - Sign-Out/Discharge Documenting (check all that apply): Patient Departure All imaging exams completed and their final reports reviewed: No Studies - Discharge Plan Condition: Stable Disposition: HOME Patient Education Materials: Upper Respiratory Infection (ED) Referrals: Ariadna Wiggins MD [Primary Care Provider] - 3 Days Additional Instructions: Flu swab is negative. There is no evidence of bacterial infection at this time. Your symptoms are likely viral in nature. Make sure you get plenty of fluids and rest. Ibuprofen/tylenol can be very helpful as well. You should be seen sooner if your symptoms increase or persist. - Billing Disposition and Condition Condition: STABLE Disposition: Home
[2019-12-14 21:13] LABS: Influenza A Molecular NEGATIVE (Negative); Influenza B Molecular NEGATIVE (Negative)
== END 2019-12-14 21:27 | disposition home or self-care (01) ==
LOC: UCCORT 20:27
DX: J06.9 Acute upper respiratory infection, unspecified (principal)
CPT/HCPCS: 99211; G0463